=== PATIENT | female | born 1935 | race Caucasian/White ===

== ENCOUNTER → 2016-05-04 | Outpatient (CLI) | payer MEDICARE ==
[~2016-05-04] MED LIST: ACLI1AER2 INH; ALPR0.5T3 PO; ALPR0.5T99 PO; CALC500T42 PO; DENO60P SC; MIRTA15 PO; MULT1TAB84 PO; SENN8.6C PO; TAB-TAB PO; TRAZ50TA12 PO; TRAZ50TA78 PO; VITA100T15 PO; VITA50LO PO; VYTO10TA32 PO; VYTO10TA8 PO; Z.0.OXYGEN INH; ZOFR4TAB PO; [UNRECOGNIZED DRUG - CODE] PO
[2016-05-04 13:26] LABS: ANION GAP 6 MEQ/L (5-15); AST (GOT) 20 U/L (15-37); BICARBONATE 31.5 MEQ/L (21.0-32.0); BLOOD UREA NITROGEN 14 MG/DL (7-18); CHLORIDE 100 MEQ/L (98-107); GLOMERULAR FILTRATION RATE 55 ML/MIN (>89); GLUCOSE,FASTING 90 MG/DL (74-99); SODIUM (NA) 137 MEQ/L (136-145)
[2016-05-04 13:30] LABS: ALKALINE PHOSPHATASE 46 U/L (45-117); ALT (GPT) 25 U/L (10-53); HDL CHOLESTEROL 65.2 MG/DL (40.0-60.0); LDL CHOLESTEROL 79 MG/DL (0-99); TOTAL BILIRUBIN ADULT 0.6 MG/DL (0.2-1.0)
== END ==
LOC: PLAB 08:40
PROVIDERS: ATTEND Family Medicine
DX: E78.2 Mixed hyperlipidemia (principal); F33.1 Major depressive disorder, recurrent, moderate; J44.9 Chronic obstructive pulmonary disease, unspecified
CPT/HCPCS: 36415; 80053; 80061

== ENCOUNTER 2016-08-15 08:48 | Emergency (ER) | payer MEDICARE ==
[~2016-08-15] VITALS: Ht 170.2 cm; Wt 50.0 kg
[~2016-08-15 08:48] MED LIST changes: -ALPR0.5T3 PO; -CALC500T42 PO; -MULT1TAB84 PO; -SENN8.6C PO; -TRAZ50TA12 PO; -VITA100T15 PO; -VYTO10TA8 PO; -ZOFR4TAB PO
[2016-08-15 08:54] VITALS: BP 119/58; PULSE 108; RESP 17; TEMP 98; O2SAT 95
--- NOTE | 2016-08-15 09:17 | PD ---
HPI Chief Complaint: Communications Field Technician Problem Time Seen by Provider: 09:13 Travel History International Travel<30 days: No Contact w/Intl Traveler<30days: No Traveled to known affect area: No History of Present Illness HPI Patient presents with concerns of feeding tube placement. Recently underwent oral cancer treatment with nasogastric feeding tube placed. States it has moved a small amount but has concerns of aspiration. Denies any nausea or vomiting. Denies any pain. Denies any shortness of breath. PFSH Past Medical History Autoimmune Disease: No Blood Disorders: No Anxiety: No Depression: Yes Cancer: Yes (PRIMITIVO. BREASTS) Cardiovascular Problems: Yes High Cholesterol: Yes Chemotherapy: Yes COPD: Yes Diabetes: No Diminished Hearing: No Endocrine: No Glaucoma: No Genitourinary: No Hepatitis: Yes ( A YOUTH) Hiatal Hernia: No Hypertension: No Immune Disorder: No Implanted Vascular Access Dvce: Yes Musculoskeletal: Yes Neurologic: No Psychiatric: Yes Reproductive: No Respiratory: Yes Immunizations Current: Yes Radiation Therapy: Yes Thyroid Disease: No Influenza Vaccination: No ?: Not Past Surgical History Abdominal Surgery: Yes (DOUBLE HERNIA REPAIR A CHILD) Appendectomy: Yes Eye Surgery: Yes (CATARACTS) Genitourinary Surgery: Yes (RIGHT NEPHRECTOMY (DONATED)) Gynecologic Surgery: Yes (PARTIAL HYSTERECTOMY BILAT MASTECTOMY) Hysterectomy: Yes Oral Surgery: Yes (T & A) Tonsillectomy: Yes Other Surgery: Yes Social History Alcohol Use: Yes (COCTAIL DAILY) Tobacco Use: Yes (1 PPD) Substance Use: No Allergies-Medications (Allergen,Severity, Reaction): Coded Allergies: Penicillin (Verified Allergy, Severe, 08/15/16) Sulfa (Verified Allergy, Unknown, 08/15/16) Aspirin (Verified Adverse Reaction, Mild, Bleeding, 08/15/16) Reported Meds & Prescriptions Reported Meds & Active Scripts Active Reported Tudorza Pressair Inh (Aclidinium [place] Inh) 400 Mcg/Act Aerp 1 Puff INH BID Trazodone (Trazodone HCl) 50 Mg Tab 50 Mg PO HS Senna (Sennosides) 8.6 Mg Cap 8.6 Mg PO HS Zofran (Ondansetron HCl) 4 Mg Tab 4 Mg PO Q6HR PRN Multivitamin Adults (Multiple Vitamins W/ Minerals) 1 Tab 1 Tab PO DAILY Mirtazapine 15 Mg Tab 15 Mg PO HS Vytorin (Ezetimibe-Simvastatin) 10-20 Mg Tab 1 Tab PO HS Vitamin B12 (Cyanocobalamin) 100 Mcg Tab 100 Mcg PO DAILY Calcium 500 Mg Tab 500 Mg PO DAILY Alprazolam 0.5 Mg Tab 0.5 Mg PO HS Review of Systems General / Constitutional: No: Fever Eyes: No: Visual changes HENT: No: Headaches Cardiovascular: No: Chest Pain or Discomfort Respiratory: No: Shortness of Breath Gastrointestinal: No: Abdominal Pain Genitourinary: No: Dysuria Musculoskeletal: No: Pain Skin: No Rash Neurologic: No: Weakness Psychiatric: No: Depression Endocrine: No: Polydipsia Hematologic/Lymphatic: No: Easy Bruising Physical Exam Narrative GENERAL: Well-nourished, well-developed patient. SKIN: Focused skin assessment warm/dry. HEAD: Normocephalic. EYES: No scleral icterus. No injection or drainage. NECK: Supple, trachea midline. No JVD or lymphadenopathy. Surgical site appears non-cellulitic healing well Nasogastric tube in place appears normal CARDIOVASCULAR: Regular rate and rhythm without murmurs, gallops, or rubs. RESPIRATORY: Breath sounds equal bilaterally. No accessory muscle use. GASTROINTESTINAL: Abdomen soft, non-tender, nondistended. MUSCULOSKELETAL: No cyanosis, or edema. BACK: Nontender without obvious deformity. No CVA tenderness. Data Data Last Documented VS Vital Signs Date Time Temp Pulse Resp B/P Pulse Ox O2 Delivery O2 Flow Rate FiO2 08/15/16 08:54 98.0 108 17 119/58 95 Orders Chest, Single Ap (08/15/16 ) [facility] Medical Decision Making Medical Screen Exam Complete: Yes Emergency Medical Condition: Yes Differential Diagnosis Aspiration, normal nasogastric feeding tube placement Narrative Course Assessment and plan discussed with patient and son at bedside. Last 72 hours Impressions Chest X-Ray 08/15/16 0000 Signed Impressions: Service Date/Time: Monday, August 15, 2016 09:43 - CONCLUSION: Feeding tube tip below the field of view of the radiograph. No acute cardiopulmonary disease identified. Darshan Jo MD Diagnosis Primary Impression: On tube feeding diet Patient Instructions: General Instructions Additional Instructions: Encouraged the patient to continue with specialists, return to the emergency room with any complications Med/Other Pt SpecificInfo: No Meds Exist/No RX given Disposition: 01 DISCHARGE HOME Condition: Good True Cagle MD August 15, 2016 09:17
[2016-08-15] MEDS ORDERED: ALPR0.5T3 PO (09:19)
[2016-08-15] MEDS ORDERED: MULT1TAB84 PO (09:19)
[2016-08-15] MEDS ORDERED: VYTO10TA8 PO (09:19)
[2016-08-15] MEDS ORDERED: CALC500T42 PO (09:19)
[2016-08-15] MEDS ORDERED: TRAZ50TA12 PO (09:19)
[2016-08-15] MEDS ORDERED: ACLI1AER2 INH (09:19)
[2016-08-15] MEDS ORDERED: VITA100T15 PO (09:19)
[2016-08-15] MEDS ORDERED: SENN8.6C PO (09:19)
[2016-08-15] MEDS ORDERED: MIRTA15 PO (09:19)
[2016-08-15] MEDS ORDERED: ZOFR4TAB PO (09:19)
--- NOTE | 2016-08-15 10:54 | RADHPO ---
EXAM DATE/TIME: 08/15/2016 09:43 [place] COMPARISON: No previous studies available for comparison. INDICATIONS : NG tube placement. MEDICAL HISTORY : Emphysema. Chronic obstructive pulmonary disease. SURGICAL HISTORY : None. ENCOUNTER: Initial ACUITY: 1 day PAIN SCORE: 0/10 LOCATION: Chest FINDINGS: Single AP view of the chest. The lungs are clear. Cardiomediastinal silhouette within normal limits. No evidence of pleural effusion or pneumothorax. Feeding tube in place with the tip below the field-o f-view of the radiograph. Right upper quadrant surgical clips noted. CONCLUSION: Feeding tube tip below the field of view of the radiograph. No acute cardiopulmona ry disease identified. Darshan Jo MD on August 15, 2016 at 10:51 Board Certified Radiologist. This report was verified electronically.
== END 2016-08-15 11:19 | disposition home or self-care (01) ==
LOC: PHED 08:48
DX: Z43.1 Encounter for attention to gastrostomy (principal); E78.00 Pure hypercholesterolemia, unspecified; F17.210 Nicotine dependence, cigarettes, uncomplicated
CPT/HCPCS: 71010; 99283

== ENCOUNTER 2016-08-18 16:44 | Emergency (ER) | payer MEDICARE ==
[~2016-08-18] VITALS: Ht 170.2 cm; Wt 50.0 kg
[~2016-08-18 16:44] MED LIST changes: +ALPR0.5T3 PO; -ALPR0.5T99 PO; +CALC500T42 PO; -DENO60P SC; +MULT1TAB84 PO; +SENN8.6C PO; -TAB-TAB PO; +TRAZ50TA12 PO; -TRAZ50TA78 PO; +VITA100T15 PO; -VITA50LO PO; -VYTO10TA32 PO; +VYTO10TA8 PO; -Z.0.OXYGEN INH; +ZOFR4TAB PO; -[UNRECOGNIZED DRUG - CODE] PO
[2016-08-18 16:48] VITALS: BP 132/64; PULSE 115; RESP 16; TEMP 98.2; O2SAT 95
--- NOTE | 2016-08-18 17:35 | PD ---
HPI Chief Complaint: Bleeding Time Seen by Provider: 16:58 Travel History International Travel<30 days: No Contact w/Intl Traveler<30days: No Traveled to known affect area: No History of Present Illness HPI 81-year-old female with history of squamous cell carcinoma of the mandible, status post surgical resection with mandibular reconstruction and cervical lymph node dissection on July 31, 2016 in [facility] by Dr. Medina, here for evaluation of bleeding from surgical incision site on neck. Patient believes that a suture came loose, and she started bleeding at around 1:30 PM today. According to the son there has been a slight persistent oozing of blood. She is not on any antiplatelets or anticoagulants. The patient would also like me to evaluate her NG tube. She was seen in the emergency department 3 days ago for possible NG tube dislodgment, however had an x-ray performed at that time which showed proper placement of the tube. She is scheduled for follow-up appointment with her surgeon tomorrow. PFSH Past Medical History Hx Anticoagulant Therapy: No Autoimmune Disease: No Blood Disorders: No Anxiety: No Depression: Yes Cancer: Yes (PRIMITIVO. BREASTS) Cardiovascular Problems: Yes High Cholesterol: Yes Chemotherapy: Yes COPD: Yes Diabetes: No Diminished Hearing: No Endocrine: No Glaucoma: No Genitourinary: No Hepatitis: Yes ( A YOUTH) Hiatal Hernia: No Hypertension: No Immune Disorder: No Implanted Vascular Access Dvce: Yes Musculoskeletal: Yes Neurologic: No Psychiatric: Yes Reproductive: No Respiratory: Yes Immunizations Current: Yes Radiation Therapy: Yes Thyroid Disease: No ?: Not Past Surgical History Abdominal Surgery: Yes (DOUBLE HERNIA REPAIR A CHILD) Appendectomy: Yes Eye Surgery: Yes (CATARACTS) Genitourinary Surgery: Yes (RIGHT NEPHRECTOMY (DONATED)) Gynecologic Surgery: Yes (PARTIAL HYSTERECTOMY BILAT MASTECTOMY) Hysterectomy: Yes Oral Surgery: Yes (T & A) Tonsillectomy: Yes Other Surgery: Yes Social History Alcohol Use: No (COCTAIL DAILY) Tobacco Use: No (QUIT) Substance Use: No Allergies-Medications (Allergen,Severity, Reaction): Coded Allergies: Clindamycin (Verified Allergy, Severe, Swelling, 08/18/16) Penicillin (Verified Allergy, Severe, 08/18/16) Sulfa (Verified Allergy, Unknown, 08/18/16) Aspirin (Verified Adverse Reaction, Mild, Bleeding, 08/18/16) Reported Meds & Prescriptions Reported Meds & Active Scripts Active Reported Tudorza Pressair Inh (Aclidinium [place] Inh) 400 Mcg/Act Aerp 1 Puff INH BID Trazodone (Trazodone HCl) 50 Mg Tab 50 Mg PO HS Senna (Sennosides) 8.6 Mg Cap 8.6 Mg PO HS Zofran (Ondansetron HCl) 4 Mg Tab 4 Mg PO Q6HR PRN Multivitamin Adults (Multiple Vitamins W/ Minerals) 1 Tab 1 Tab PO DAILY Mirtazapine 15 Mg Tab 15 Mg PO HS Vytorin (Ezetimibe-Simvastatin) 10-20 Mg Tab 1 Tab PO HS Vitamin B12 (Cyanocobalamin) 100 Mcg Tab 100 Mcg PO DAILY Calcium 500 Mg Tab 500 Mg PO DAILY Alprazolam 0.5 Mg Tab 0.5 Mg PO HS Review of Systems Except as stated in HPI: all other systems reviewed are Neg Physical Exam Narrative GENERAL: Well-developed, thin, awake, alert, no acute distress. SKIN: Focused skin assessment warm/dry. Large surgical incision across entire anterior neck with several sutures that are in place. Wound appears to be well- healing with no warmth or erythema. The right anterior aspect of the wound there is a small amount of oozing blood with underlying fullness which appears to be a hematoma. No purulent drainage. HEAD: Atraumatic. Normocephalic. EYES: Pupils equal and round. No scleral icterus. No injection or drainage. ENT: Mucous membranes pink and moist. NG tube in left naris. No intraoral bleeding. NECK: Skin exam as above. CARDIOVASCULAR: Regular rate and rhythm. RESPIRATORY: No accessory muscle use. Clear to auscultation. Breath sounds equal bilaterally. NEUROLOGICAL: Awake and alert. No obvious cranial nerve deficits. Motor grossly within normal limits. Normal speech. PSYCHIATRIC: Appropriate mood and affect; insight and judgment normal. Data Data Last Documented VS Vital Signs Date Time Temp Pulse Resp B/P Pulse Ox O2 Delivery O2 Flow Rate FiO2 08/18/16 16:48 98.2 115 16 132/64 95 Orders Cephalexin (Keflex) (08/18/16 17:45) MDM Medical Decision Making Medical Screen Exam Complete: Yes Emergency Medical Condition: Yes Differential Diagnosis Hematoma, cellulitis/abscess unlikely Narrative Course Vital signs reviewed. Patient has a small amount of oozing from right anterior neck from her surgical incision which appears to be overall well appearing without signs of infection. There does appear to be a small hematoma where the bleeding is coming from. This was expressed, and direct pressure was applied, and hemostasis was achieved. Case discussed with one of the residents who covers for the patient' s facial surgeon Dr. Georges in [facility]. Recommends starting the patient on antibiotics and having the patient follow-up in their office tomorrow for her scheduled appointment. Patient has several antibiotic allergies. Because I do not believe that there is infection at this time, I do not want to risk the patient having an anaphylactic reaction with her extensive history of neck surgeries/cancer. Diagnosis Primary Impression: Bleeding Referrals: Oral Maxillofacial Surgeon 1 day Additional Instructions: Follow-up with your surgeon tomorrow as scheduled. Return to the emergency department for worsening symptoms or any other concerns. Disposition: 01 DISCHARGE HOME Condition: Stable Kenneth Carlton MD August 18, 2016 17:35
[2016-08-18] MEDS ORDERED: CEPHALEXIN MONOHYDRATE 500 MG CAP PO ONE (17:45)
== END 2016-08-18 18:13 | disposition home or self-care (01) ==
LOC: PHED 16:44
DX: Z51.89 Encounter for other specified aftercare (principal); F32.9 Major depressive disorder, single episode, unspecified; E78.00 Pure hypercholesterolemia, unspecified; J44.9 Chronic obstructive pulmonary disease, unspecified; Z79.899 Other long term (current) drug therapy
CPT/HCPCS: 99283

== ENCOUNTER → 2016-11-02 | Outpatient (CLI) | payer MEDICARE ==
[2016-11-02 13:13] LABS: ANION GAP 10 MEQ/L (5-15); BICARBONATE 32.2 MEQ/L (21.0-32.0); BLOOD UREA NITROGEN 17 MG/DL (7-18); CHLORIDE 100 MEQ/L (98-107); GLOMERULAR FILTRATION RATE 51 ML/MIN (>89); SODIUM (NA) 142 MEQ/L (136-145)
[2016-11-02 13:27] LABS: ALKALINE PHOSPHATASE 65 U/L (45-117); ALT (GPT) 36 U/L (10-53); AST (GOT) 27 U/L (15-37); GLUCOSE,FASTING 100 MG/DL (74-99); HDL CHOLESTEROL 56.3 MG/DL (40.0-60.0); LDL CHOLESTEROL 78 MG/DL (0-99); TOTAL BILIRUBIN ADULT 0.8 MG/DL (0.2-1.0)
== END ==
LOC: PLAB 08:19
PROVIDERS: ATTEND Family Medicine
DX: J44.9 Chronic obstructive pulmonary disease, unspecified (principal); E78.2 Mixed hyperlipidemia; E05.90 Thyrotoxicosis, unspecified without thyrotoxic crisis or storm
CPT/HCPCS: 36415; 80053; 80061; 84443

== ENCOUNTER → 2017-08-02 | Outpatient (CLI) | payer MEDICARE ==
[2017-08-02 10:27] LABS: ALBUMIN 3.7 GM/DL (3.4-5.0); ANION GAP 12 MEQ/L (5-15); AST (GOT) 20 U/L (15-37); BICARBONATE 29.4 MEQ/L (21.0-32.0); BLOOD UREA NITROGEN 7 MG/DL (7-18); CALCIUM 9.3 MG/DL (8.5-10.1); CHLORIDE 91 MEQ/L (98-107); CREATININE 0.87 MG/DL (0.50-1.00); GLOMERULAR FILTRATION RATE 63 ML/MIN (>89); GLUCOSE,FASTING 125 MG/DL (74-99); POTASSIUM 3.9 MEQ/L (3.5-5.1); SODIUM (NA) 132 MEQ/L (136-145)
[2017-08-02 10:28] LABS: CHOLESTEROL 137 MG/DL (120-200)
[2017-08-02 10:31] LABS: ALKALINE PHOSPHATASE 70 U/L (45-117); ALT (GPT) 21 U/L (10-53); CHOLESTEROL/ HDL RATIO 2.33 RATIO; HDL CHOLESTEROL 58.6 MG/DL (40.0-60.0); LDL CHOLESTEROL 61 MG/DL (0-99); TOTAL BILIRUBIN ADULT 1.2 MG/DL (0.2-1.0); TOTAL PROTEIN 7.1 GM/DL (6.4-8.2); TRIGLYCERIDES 85 MG/DL (42-150)
== END ==
LOC: PLAB 07:52
DX: J44.9 Chronic obstructive pulmonary disease, unspecified (principal); F51.04 Psychophysiologic insomnia; C06.2 Malignant neoplasm of retromolar area; R09.02 Hypoxemia; E78.2 Mixed hyperlipidemia; F33.1 Major depressive disorder, recurrent, moderate; F41.1 Generalized anxiety disorder; Z72.0 Tobacco use; Z68.1 Body mass index [BMI] 19.9 or less, adult
CPT/HCPCS: 36415; 80053; 80061